=== PATIENT | female | born 1995 | race Caucasian/White ===

== ENCOUNTER 2020-02-02 20:09 | Emergency (ER) | payer OTHER ==
[~2020-02-02] VITALS: Ht 170.2 cm; Wt 65.8 kg
== END 2020-02-03 04:32 | disposition home or self-care (01) ==
LOC: ER 20:09
DX: T67.09XA Other heatstroke and sunstroke, initial encounter (principal); X30.XXXA Exposure to excessive natural heat, initial encounter; Y93.89 Activity, other specified; Y92.832 Beach as the place of occurrence of the external cause; Y99.8 Other external cause status; E86.0 Dehydration